=== PATIENT | male | born 1955 | race Caucasian/White ===

== ENCOUNTER 2024-07-21 06:39 | Day surgery (SDC) | payer MEDICARE, SELFPAY ==
[2024-07-19 13:38] VITALS: BMI 35.2
[2024-07-21 07:28] VITALS: BP 152/91; PULSE 87; RESP 16; TEMP 36.6; O2SAT 98
--- NOTE | 2024-07-21 07:35 | EXP.ANES.CKL ---
[facility] Disclaimer: The information contained in this section may have been updated after the patient was seen, as this information can be updated by other users. Medical History Lung cancer Wears hearing aid History of gastroesophageal reflux (GERD) Hyperlipidemia Hypertension Surgical History H/O shoulder surgery Hx of total knee replacement History of surgery Family History Other Heart attack Lung cancer Social History Smoking Status: Former smoker alcohol intake: never substance use type: marijuana current occupational status: retired Travel in the last 8 weeks: None caffeine: Yes [facility] Anesthesia Checklist Patient Identification Patient Identification: Arm Band and Verbal (Name & ) Structural Data Admitted From: Home Planned Operative Procedure/s: Colonoscopy Consent for Planned Operative Procedure(s) Verified: Yes Verified Documents: Surgical Consent NPO Status Verified Time NPO: 00:00 Additional verifications Anesthesia Reactions: No Airway Assessment Mallampati Score:: Class II C-Spine Mobility Assessed: Yes TMJ Mobility Assessed: Yes Dentition: Poor Dentition (Multiple missing) Neurological Assessment Level of Consciousness: Awake Hx Seizures: No Numbness or tingling in extremities: No Anesthesia Plan Anesthesia Risk discussed: Yes Anesthesia Plan: Verified ASA Class: III Anesthesia Type: MAC
[2024-07-21 07:54] VITALS: O2SAT 99
--- NOTE | 2024-07-21 07:57 | P.HP_ITS ---
History of Present Illness *Admission Date: 07/21/24 *Reason for visit:: Surveillance-personal history of advanced adenomatous polyps *History of present illness: Mr. Rodriguez is a 68-year-old gentleman who is here for surveillance colonoscopy secondary to larger more advanced adenomatous colon polyps. The examination is deemed medically necessary for colonoscopy. The patient has been seen, interviewed and examined prior to the procedure by both myself and the anesthesia provider. [facility] Disclaimer: The information contained in this section may have been updated after the patien denise was seen, as this information can be updated by other users. Medical History Lung cancer Wears hearing aid History of gastroesophageal reflux (GERD) Hyperlipidemia Hypertension Surgical History H/O shoulder surgery Hx of total knee replacement History of surgery Family History Other Heart attack Lung cancer Social History (Updated 07/21/24 @ 07:36 by Edmundo Munguia CRNA) Smoking Status: Former smoker alcohol intake: never substance use type: marijuana current occupational status: retired Travel in the last 8 weeks: None caffeine: Yes Review of Systems Review of Systems Review of systems (narrative): Negative *Cardiovascular Comments: Negative *Gastrointestinal Comments: Negative *Genitourinary Comments: Negative *Musculoskeletal Comments: Negative *Neurologic Comments: Negative Meds Home Medications and Allergies Home Medications ?Medication ?Instructions ?Recorded ?Confirmed ?Type atorvastatin 20 mg tablet 20 mg PO DAILY 07/19/24 07/21/24 History esomeprazole magnesium 20 mg 20 mg PO DAILY 07/19/24 07/19/24 History capsule,delayed release (Nexium) metoprolol tartrate 25 mg tablet 25 mg PO TID 07/19/24 07/21/24 History milk thistle 140 mg capsule 0 mg PO DAILY 07/19/24 07/21/24 History New Prescriptions to Start Prescriptions: Allergies Allergy/AdvReac Type Severity Reaction Status Date / Time cephalexin Allergy Unknown Verified 07/21/24 07:26 allergy reaction hydrochlorothiazide Allergy Unknown Verified 07/21/24 07:26 allergy reaction lisinopril Allergy Unknown Verified 07/21/24 07:26 allergy reaction losartan Allergy Unknown Verified 07/21/24 07:26 allergy reaction Exam Data for Last 24 hours Vital signs and Labs for Last 24 Hours: Temp Pulse Resp BP Pulse Ox O2 Del Method O2 Flow Rate 97.8 F 87 16 152/91 H 98 Nasal Cannula 5 07/21/24 07:28 07/21/24 07:28 07/21/24 07:28 07/21/24 07:28 07/21/24 07:28 07/21/24 07:54 07/21/24 07:54 I & O for Last 24 hours: Intake & Output 07/18/24 07/19/24 07/20/24 07/21/24 23:59 23:59 23:59 23:59 Weight 218 lb *Routine HEENT Exam Head: Present normocephalic Eye: Present EOMI and PERRL ENT: Present mucous membranes moist *Routine Neck Exam Neck: Present supple *Routine Respiratory Exam Respiratory: Present CTA bilaterally *Routine Cardiovascular Exam Cardiovascular: Present RRR *Routine Abdominal Exam Abdominal: Present soft and normoactive bowel sounds; Absent tenderness *Routine Rectal Exam Rectal:: deferred *Routine Genitalia Exam Genitalia:: deferred *Routine Extremities Exam Extremities: Absent cyanosis, clubbing or edema *Routine Skin Exam Skin: Present warm; Absent rash *Routine Neurological Exam Neurological: Present alert and oriented X3 Assessment and Plan *Assessment and plan (1) Personal history of adenomatous and serrated colon polyps: Status: Acute Category: Medical Code(s): Z86.0101 - Personal history of adenomatous and serrated colon polyps Plan A/P: 1. Personal history of advanced adenomatous colon polyps is the preprocedural diagnosis. The patient will be anesthetized/sedated using MAC sedation. The patient has been seen and examined. Cardiac and lung assessment prior to the examination is stable. Proceed with planned colonoscopy
--- NOTE | 2024-07-21 07:58 | HMH.PROCNOTE ---
[facility] Procedure Note Date: 07/21/24 Time: 08:12 Procedure Note:: Colonoscopy Procedure Report: Colonoscopy with cold snare polypectomy Endoscopist: Ramesh Up II, MD Referring physician: Amish Worthington M.D. [address] [place] [address] (the [facility]) Date of Procedure: July 21, 2024 Equipment: Olympus 190 variable stiffness pediatric colonoscope Sedation: MAC sedation Indication: Mr. Rodriguez is a 68-year-old gentleman who is here for follow-up surveillance colonoscopy secondary to a personal history of advanced adenomatous polyps. He had a colonoscopy a year ago and had larger more advanced adenomatous colon polyp and is here for surveillance. He reports no abdominal pain, weight loss, change in his bowel habits or rectal bleeding. He reports no family history of colon cancer. Procedure: Prior to the procedure, a history and physical exam was performed, and patient's medications and allergies were reviewed. The risks, benefits and alternatives of the sedation and procedure were discussed with the patient. All questions were answered and informed consent was obtained. The patient was brought to the procedure room. Patient identification and proposed procedure were verified by the physician and the nurse. The patient was placed in a left lateral decubitus position and the scope was passed under direct vision. Throughout the procedure, the patient's blood pressure, pulse, and oxygen saturations were monitored continuously. The colonoscopy was accomplished without difficulty. The patient tolerated the procedure well. Findings: On digital rectal examination there was normal rectal tone. There were no external hemorrhoids. The colonoscope was introduced through the anal canal to the rectum and advanced to the cecum. The ileocecal valve and appendiceal orifice were identified. The scope was advanced a short distance into the ileum which appeared grossly normal. The scope was then withdrawn into the colon. The cecum, ascending and transverse colon and mucosa were grossly normal. There were 2 benign polyps (descending x 1 (4 mm) and sigmoid x 1 (4 mm)). Both of these were removed via cold snare polypectomy. There were a few scattered diverticuli throughout the descending and sigmoid colon (LEFT colon). The rectum itself was normal. Upon retroflexion within the rectum there were grade 2 internal hemorrhoids. The preparation was excellent throughout with Dinosaur Preparation Score of 9. The cecal time was 12 minutes. Impression: 1. Diminutive colonic polyps x 2 2. Grade 2 internal hemorrhoids Plan: I will follow-up the polyp histology and obtain my old colonoscopy reports. I would recommend surveillance colonoscopy again in 5 years based upon his history of adenomatous polyps. I would encourage continue psyllium fiber supplementation on a maintenance basis.
[2024-07-21 08:17] VITALS: BP 111/67; PULSE 83; RESP 18; TEMP 36.4; O2SAT 99
[2024-07-21 08:24] VITALS: BP 122/74; PULSE 86; RESP 18; O2SAT 96
[2024-07-21 08:37] VITALS: BP 137/84; PULSE 84; RESP 18; O2SAT 97
[2024-07-21 08:47] VITALS: BP 133/79; PULSE 83; RESP 17; O2SAT 97
[2024-07-21 08:48] LABS: Basophils # 0.1 K/mm3 (0-0.2); Basophils % 1.1 % (0.1-2.0); Eosinophils # 0.1 K/mm3 (0.0-0.4); Eosinophils % 1.9 % (0.1-12.0); Hematocrit 37.8 % (42.0-52.0); Hemoglobin 12.7 g/dL (14.1-18.0); Lymphocytes # 0.6 K/mm3 (0.7-4.5); Lymphocytes % 13.4 % (10-50); Mean Corpuscular HGB Conc 33.6 g/dL (31.8-35.4); Mean Corpuscular Hemoglobin 30.3 pg (27.0-31.2); Mean Corpuscular Volume 90.1 fl (80-94); Mean Platelet Volume 7.6 fl (7.4-10.4); Monocytes # 0.4 K/mm3 (0.1-1.0); Monocytes % 7.6 % (1.7-9.3); Neutrophils # 3.7 K/mm3 (1.8-7.8); Neutrophils % 76.1 % (37.0-80.0); Platelet Count 213 K/mm3 (142-424); Red Blood Count 4.19 M/mm3 (4.60-6.20); Red Cell Distribution Width 14.7 % (11.5-17.5); White Blood Count 4.8 K/mm3 (4.8-10.8)
[2024-07-21 08:57] LABS: Albumin Level 4.2 g/dl (3.5-5.0); Chloride 104 mmol/L (98-107); Potassium 4.5 mmoL/L (3.5-5.1); Sodium 140 mmol/L (136-145)
[2024-07-21 09:00] LABS: Alanine Aminotransferase 28 U/L (12-78); Albumin/Globulin Ratio 1.4 (1.1-1.8); Alkaline Phosphatase 59 U/L (38-126); Anion Gap 11.5 mEq/L (5-15); Aspartate Amino Transferase 39 U/L (17-59); Bilirubin,Total 0.8 mg/dl (0.2-1.3); Blood Urea Nitrogen 11 mg/dl (9-20); Calcium 8.8 mg/dl (8.4-10.2); Carbon Dioxide 29 mmol/L (22.0-30.0); Creatinine Clearance Estimated 99 mL/min (50-200); Estimated Glomerular Filt Rate 74 ml/min (>60); GFR (African American) 90 ML/MIN (>60); Globulin 2.9 g/dL (1.3-3.2); Glucose 114 mg/dl (74-100); Total Protein,Serum 7.1 g/dl (6.3-8.2)
[2024-07-21 09:57] LABS: INR 0.97 (0.9-1.1); Prothrombin Time 10.9 seconds (10.1-12.5)
[2024-07-22 08:21] LABS: AFP, Tumor Marker 3.6 ng/mL (0.0-8.4)
[2024-07-26 07:27] LABS: ALT (SGPT) P5P 26 IU/L (0-55); AST (SGOT) P5P 34 IU/L (0-40); Alpha 2-Macroglobulins, Qn 213 mg/dL (110-276); Apolipoprotein A-1 94 mg/dL (101-178); Bilirubin, Total 0.5 mg/dL (0.0-1.2); Cholesterol, Total 157 mg/dL (100-199); Fibrosis Score 0.59 (0.00-0.21); GGT 95 IU/L (0-65); Glucose 121 mg/dL (70-99); Haptoglobin 173 mg/dL (32-363); NASH Score 0.77 (0.00-0.25); Steatosis Score 0.82 (0.00-0.40); Triglycerides 272 mg/dL (0-149)
== END 2024-07-21 08:47 | disposition home or self-care (01) ==
PROVIDERS: Visit Provider Internal Medicine Gastroenterology
PROC: (CPT 45385; principal; 2024-07-21 08:00)
DX: K63.5 Polyp of colon (principal); K57.30 Diverticulosis of large intestine without perforation or abscess without bleeding; K64.1 Second degree hemorrhoids; Z86.0101 Personal history of adenomatous and serrated colon polyps
CPT/HCPCS: 45385; 36415; 80053; 82105; 85025; 85610; 88305